=== PATIENT | male | born 2000 | race Hispanic/Latino ===

== ENCOUNTER 2022-11-17 17:54 | Emergency (ER) | payer BC, SELFPAY ==
[2022-11-17 18:11] VITALS: BP 138/87; PULSE 128; RESP 18; TEMP 38.8; O2SAT 98
--- NOTE | 2022-11-17 18:44 | ED.URI ---
HPI - URI/Sore Throat General Chief Complaint: Upper Respiratory Infection Stated Complaint: flu/cold sx Time Seen by Provider: 11/17/22 18:44 History of Present Illness HPI Narrative: 22-year-old male presented for complaints sore throat, fever, and body aches since yesterday. Endorses decreased appetite. He denies shortness of breath, wheezing, nausea or vomiting. He is maintaining his secretions. Denies sick contacts. Related Data Allergies Allergy/AdvReac Type Severity Reaction Status Date / Time No Known Allergies Allergy Verified 11/17/22 18:13 Review of Systems Review of Systems: CONSTITUTIONAL: Reports body aches, fever, chills EYES: Denies visual changes, redness, or discharge. ENT: Denies rhinorrhea, congestion, or otalgia. CARDIOVASCULAR: Denies chest pain, palpitations, or edema. RESPIRATORY: Denies dyspnea. GASTROINTESTINAL: Denies abdominal pain, nausea, vomiting, or diarrhea. SKIN: Denies rash, itching, or wounds. MUSCULOSKELETAL: Denies back pain, joint pain, or myalgia. NEUROLOGIC: Denies headache [facility] Past Medical History Medical History (Updated 11/17/22 @ 18:51 by Kira Oviedo, [employer]) No pertinent past medical history Exam Narrative: GENERAL: Ill-appearing, nontoxic no acute distress. EYES: conjunctivae clear ENT: Mucous membranes moist. TM pearly dunham with normal light reflex bilaterally; no tragal tenderness. hot potato voice noted. Oropharynx erythematous Tonsils enlarged without exudate. No drooling, no hoarseness, no trismus, uvula midline. No tripod positioning, or soft palate swelling. NECK: Supple. No lymphadenopathy CHEST: Clear to auscultation, breath sounds equal. No respiratory distress, speaks in full sentences. HEART: Regular rate and rhythm. No murmur heard. SKIN: Warm, dry, no rash. NEURO: Alert and oriented x3. Course Course Emergency Course: Patient is aware of diagnosis, understands and agrees to treatment plan. Anticipatory guidance given. Patient agrees to follow-up as directed and is aware of reasons to seek care at the emergency department. Portions of this record may have been created with voice recognition software Level of Care: Express Care Visit Vital Signs Vital signs: Vital Signs Temperature 101.8 F H 11/17/22 18:11 Pulse Rate 128 H 11/17/22 18:11 Respiratory Rate 18 11/17/22 18:11 Blood Pressure 138/87 11/17/22 18:11 Pulse Oximetry 98 11/17/22 18:11 Oxygen Delivery Room Air 11/17/22 18:11 Temperature 101.8 F H 11/17/22 18:11 Pulse Rate 128 H 11/17/22 18:11 Respiratory Rate 18 11/17/22 18:11 Blood Pressure 138/87 11/17/22 18:11 Pulse Oximetry 98 11/17/22 18:11 Oxygen Delivery Room Air 11/17/22 18:11 MDM - URI/Sore Throat MDM Narrative Medical decision making narrative: strep result reviewed with pt. Advise supportive treatments. Patient is appropriate for outpatient treatment and follow-up. Differential Diagnosis Differential diagnosis: Likely upper respiratory infection, viral infection and pharyngitis Lab Data Labs: Lab Results 11/17/22 Range/Units 18:20 POC SARS CoV-2 Ag Negative (Negative) Influenza A Screen Negative Reference Range: Negative Influenza B Screen Negative Reference Range: Negative Strep Screen Positive Group A Strep *(Reference Range: Negative)* Discharge Plan Discharge Clinical Impression: Strep pharyngitis Patient Disposition: Home, Self-Care Condition: Stable Instructions: Antibiotic Form, Strep Throat (ED) Additional Instructions: - Take the antibiotic as directed. Fever and sore throat typically resolve within one to three days. Most patients can return to work, school, or daycare after 12 to 24 hours of antibiotic therapy, provided you are fever free
== END 2022-11-17 18:55 | disposition home or self-care (01) ==
PROVIDERS: Emergency Provider Nurse Practitioner Family
DX: J02.0 Streptococcal pharyngitis (principal); Z20.822 Contact with and (suspected) exposure to COVID-19
CPT/HCPCS: 87426; 87804; 87880; 99203; C9803; G0463